=== PATIENT | female | born 1950 | race Caucasian/White ===

== ENCOUNTER 2021-02-14 21:57 | Emergency (ER) | payer MEDICARE, OTHER ==
[2021-02-14] MEDS: predniSONE 20 MG TAB PO ONE (22:50)
--- NOTE | 2021-02-14 22:53 | ED General ---
General Chief Complaint: Cough/Cold/Flu Symptoms Stated Complaint: SORE/COUGH Nursing Triage Note: Pt complaining of a cough that started earlier today Source of Information: Patient Exam Limitations: No Limitations History of Present Illness Date Seen by Provider: Feb 14, 2021 Time Seen by Provider: 22:00 Initial Comments Patient is a 70-year-old female with chronic bronchitis who presents with sore throat upon waking this morning. Patient's throat is gradually became more pain and raw throughout the afternoon. She denies difficulty swallowing, drooling or deep neck pain. Symptoms are rated moderate. No medications or therapies taken prior to ED arrival no fever chills or sweats. No body aches. No change in cough, shortness of breath generalized weakness or fatigue. Patient has received both Covid vaccinations. She denies any other acute symptoms or complaints. Timing/Duration: 4-6 Hours Severity: Moderate Modifying Factors: improves with Other Associated Systoms: Other Allergies and Home Medications Allergies Coded Allergies: No Known Drug Allergies (Unverified , 02/14/21) Patient Home Medication List Home Medication List Reviewed: Yes Review of Systems Review of Systems Constitutional: see HPI EENTM: see HPI Respiratory: see HPI Cardiovascular: see HPI Gastrointestinal: see HPI Musculoskeletal: see HPI Skin: see HPI Psychiatric/Neurological: See HPI Hematologic/Lymphatic: See HPI Immunological/Allergic: see HPI All Other Systems Reviewed Negative Unless Noted: Yes Past Mwhinhf-Hujpao-Vwunio Hx Patient Social History Tobacco Use?: Yes Use of E-Cig and/or Vaping dev: No Substance use?: No Alcohol Use?: No Pt feels they are or have been: No Physical Exam Vital Signs Vital Signs - First Documented 02/14/21 22:03 Temp 36.5 Pulse 66 Resp 18 B/P (MAP) 180/79 (112) Pulse Ox 98 O2 Delivery Room Air Capillary Refill : Less Than 3 Seconds Height, Weight, BMI Height: '" Weight: lbs. oz. kg; BMI Method: General Appearance: No Apparent Distress, WD/WN Eyes: Bilateral Eye Normal Inspection, Bilateral Eye PERRL, Bilateral Eye EOMI HEENT: PERRL/EOMI, TMs Normal, Normal ENT Inspection, Moist Mucous Membranes, Pharyngeal Erythema (No swelling.), Other (No dysphonia drooling or trismus) Neck: Non Tender, Supple Respiratory: Lungs Clear Cardiovascular: Regular Rate, Rhythm Gastrointestinal: Non Tender, Soft Neurologic/Psychiatric: Alert, Oriented x3 Focused Exam Sepsis Stage: Ruled Out Progress/Results/Core Measures Suspected Sepsis SIRS Temperature: Pulse: 66 Respiratory Rate: 18 Blood Pressure 180 /79 Mean: 112 Results/Orders Lab Results Laboratory Tests Test 02/14/21 22:12 Range/Units Influenza Type A Antigen NEGATIVE NEGATIVE Influenza Type B Antigen NEGATIVE NEGATIVE Group A Streptococcus Screen NEGATIVE NEGATIVE My Orders Orders - ERICKSON SERRATO DO Rapid Strep A Screen (02/14/21 22:08) Influenza A & B Antigens (02/14/21 22:08) Prednisone Tablet (Deltasone Tablet) (02/14/21 22:45) Vital Signs/I&O 02/14/21 22:03 Temp 36.5 Pulse 66 Resp 18 B/P (MAP) 180/79 (112) Pulse Ox 98 O2 Delivery Room Air Capillary Refill : Less Than 3 Seconds Blood Pressure Mean: 112 Departure Communication (Admissions) Strep, influenza negative. Acute pharyngitis likely viral. Steroids given. Recommendations supportive care watchful waiting and PCP follow-up. Return precautions reviewed. Patient verbalizes understanding agreement discharge inst ructions prior to departure. Impression Primary Impression: Acute pharyngitis Disposition: HOME, SELF-CARE Condition: Stable Departure-Patient Inst. Decision time for Depature: 22:54 Referrals: CRISTAL TOTO APRN (PCP/Family) Primary Care Physician Patient Instructions: Strep Throat (DC) Add. Discharge Instructions: You were evaluated in the emergency department for sore throat. Strep and influenza test were obtained and are negative. If further concerns, you may obtain outpatient Covid testing. Please self quarantine until after your symptoms resolve. You may take Ibuprofen for pain and tramadol as needed for additional relief. Follow-up with your PCP in 3 to 5 days if symptoms persist. Return to the ED if new or worsening symptoms. All discharge instructions reviewed with patient and/or family. Voiced unde rstanding. Scripts Tramadol HCl (Tramadol HCl) 50 Mg Tablet 50 MG PO Q6H PRN for PAIN for 3 Days, #10 TAB 0 Refills Prov: ERICKSON SERRATO DO 02/14/21 ERICKSON SERRATO DO Feb 14, 2021 22:53
[2021-02-14] MEDS ORDERED: TRM50T PO (22:56)
[2021-02-14 23:00] VITALS: BP 163/80
== END 2021-02-14 23:04 | disposition home or self-care (01) ==
LOC: EDUNIT# 21:57 → ER FS 22:01
DX: J02.9 Acute pharyngitis, unspecified (principal); Z72.0 Tobacco use
CPT/HCPCS: 87430; 87804

== ENCOUNTER 2021-03-23 10:01 | Outpatient (CLI) | payer MEDICARE ==
[~2021-03-23] VITALS: Ht 163 cm; Wt 82.0 kg
[~2021-03-23 10:01] MED LIST: TRM50T PO
[2021-03-23 10:06] VITALS: BP 189/85
[2021-03-23] MEDS ORDERED: ONDANSETRON 4 MG/2 ML (SDV) Z0FRAN IV PRN (10:15)
[2021-03-23] MEDS ORDERED: EPINEPHrine INJECTION 1 MG/ML AMP IM PRN (10:15)
[2021-03-23] MEDS ORDERED: SOTROVIMAB 500 MG/NS 50 ML IVPB IV ONE ×2 (10:15)
[2021-03-23] MEDS ORDERED: diphenhydrAMINE 50 MG/ML INJ (BENADRYL) IV PRN (10:15)
[2021-03-23] MEDS ORDERED: ACETAMINOPHEN 500 MG TAB (TYLENOL) PO PRN (10:15)
[2021-03-23 11:10] VITALS: BP 163/74
== END 2021-03-23 11:11 | disposition home or self-care (01) ==
LOC: INFUSION 10:01
PROVIDERS: ATTEND Registered Nurse
DX: U07.1 COVID-19 (principal)